=== PATIENT | female | born 1990 | race Hispanic/Latino ===

== ENCOUNTER 2020-05-20 18:31 | Emergency (ER) | payer MEDICAID ==
[2020-05-20] MEDS ORDERED: ZOSYN 3.375GM+NS 50ML 50 ML IV ONE (20:41)
[2020-05-20] MEDS ORDERED: ONDANSETRON HCL 4 MG/2 ML VIAL ONE (20:41)
[2020-05-20] MEDS ORDERED: ACETAMINOPHEN 325 MG TAB ONE (20:41)
[2020-05-20] MEDS ORDERED: IBUPROFEN 600 MG TABLET ONE (20:42)
[2020-05-20] MEDS ORDERED: MORPHINE SULFATE 4 MG/1ML SYG ONE (20:42)
[2020-05-20 20:51] LABS: BASOPHILS % (AUTO) 0.1 % (0.0-5.0); EOSINOPHILS % (AUTO) 0.6 % (0.0-8.0); HEMATOCRIT 38.3 % (36-48); LYMPHOCYTES % (AUTO) 21.5 % (21.0-51.0); MEAN CORPUSCULAR HEMOGLOBIN 30.2 pg (27.0-33.0); MEAN CORPUSCULAR HGB CONC 34.5 g/dL (32.0-36.0); MEAN CORPUSCULAR VOLUME 87.6 fL (79-99); MONOCYTES % (AUTO) 8.1 % (3.0-13.0); NEUTROPHILS % (AUTO) 69.4 % (40.0-77.0); PLATELET COUNT (AUTO) 303 K/uL (130-400); RED BLOOD CELL COUNT(AUTO) 4.37 MIL/uL (4.00-5.50); RED CELL DISTRIBUTION WIDTH 12.1 % (11.0-15.5); WHITE BLOOD COUNT (AUTO) 6.9 K/uL (4.8-10.8)
[2020-05-20 20:55] LABS: APPEARANCE,URINE Clear (CLEAR); BILIRUBIN,URINE Negative (NEGATIVE); COLOR,URINE Yellow (YELLOW); GLUCOSE, URINE (UA) Negative (NEGATIVE); KETONES,URINE Negative (NEGATIVE); LEUKOCYTE ESTERASE ,URINE Trace (NEGATIVE); NITRATE,URINE Negative (NEGATIVE); OCCULT BLOOD,URINE Large (NEGATIVE); PROTEIN,URINE Negative (NEGATIVE); UROBILINOGEN,URINE 0.2 mg/dL (0.2-1.0)
[2020-05-20 20:57] LABS: HCG,QUAL RESULT NEGATIVE (NEGATIVE)
[2020-05-20 21:00] LABS: CREATININE 0.6 mg/dL (0.5-1.5); POTASSIUM 3.4 mmol/L (3.5-5.1)
[2020-05-20 21:04] LABS: ALBUMIN 3.9 g/dL (3.5-5.0); BILIRUBIN,TOTAL 0.2 mg/dL (0.2-1.0); TOTAL PROTEIN, SERUM 7.4 g/dL (6.0-8.3)
[2020-05-20 21:24] LABS: BACTERIA,URINE Rare /HPF (None Seen)
[2020-05-20 21:25] LABS: SQUAMOUS EPITHELIAL CELL,UR Few /HPF (0-2)
[2020-05-20] MEDS ORDERED: IOHEXOL-350 75 ML VIAL IV ONE (21:28)
[2020-05-20] MEDS ORDERED: CEFTRIAXONE SODIUM 500 MG VIAL ONE (23:36)
[2020-05-20] MEDS ORDERED: AZITHROMYCIN 250 MG TABLET PO ONE (23:37)
[2020-05-24 10:13] LABS: CHLAMYDIA DNA N.A.AMPLIFY Negative (Negative)
== END 2020-05-21 00:14 | disposition home or self-care (01) ==
LOC: EDH 18:31
DX: N73.9 Female pelvic inflammatory disease, unspecified (principal); J45.909 Unspecified asthma, uncomplicated; Z91.040 Latex allergy status
CPT/HCPCS: 36415; 71045; 74177; 76856; 80053; 81001; 81025; 83605; 83690; 85025; 87040 ×2; 87486; 87797; 93005; 96365; 96366; 96375; 99285; J0696; J2270; J2405; J2543; Q9967

== ENCOUNTER 2021-05-11 16:53 | Emergency (ER) | payer MEDICAID, OTHER ==
[~2021-05-11] VITALS: Ht 152.4 cm; Wt 49.0 kg
[2021-05-11 17:24] LABS: APPEARANCE,URINE Clear (CLEAR); BILIRUBIN,URINE Negative (NEGATIVE); COLOR,URINE Yellow (YELLOW); GLUCOSE, URINE (UA) TRACE mg/dL (NEGATIVE); KETONES,URINE Negative (NEGATIVE); LEUKOCYTE ESTERASE ,URINE Negative (NEGATIVE); NITRATE,URINE Negative (NEGATIVE); OCCULT BLOOD,URINE Negative (NEGATIVE); PH,URINE 6.5 (5.0-8.0); PROTEIN,URINE Negative (NEGATIVE); UROBILINOGEN,URINE 0.2 mg/dL (0.2-1.0)
[2021-05-11 17:29] LABS: HCG,QUAL RESULT NEGATIVE (NEGATIVE)
[2021-05-11 17:35] LABS: BACTERIA,URINE Few /HPF (None Seen); RBC,URINE 0-1 /HPF (0-1); SQUAMOUS EPITHELIAL CELL,UR Few /HPF (0-2); WBC,URINE 0-1 /HPF (0-1)
[2021-05-11 17:47] LABS: BASOPHILS % (AUTO) 0.3 % (0.0-5.0); EOSINOPHILS % (AUTO) 2.8 % (0.0-8.0); HEMATOCRIT 36.7 % (36-48); LYMPHOCYTES % (AUTO) 26.8 % (21.0-51.0); MEAN CORPUSCULAR HEMOGLOBIN 30.2 pg (27.0-33.0); MEAN CORPUSCULAR HGB CONC 33.8 g/dL (32.0-36.0); MEAN CORPUSCULAR VOLUME 89.5 fL (79-99); MONOCYTES % (AUTO) 9.7 % (3.0-13.0); NEUTROPHILS % (AUTO) 60.2 % (40.0-77.0); PLATELET COUNT (AUTO) 281 K/uL (130-400); RED CELL DISTRIBUTION WIDTH 12.4 % (11.0-15.5); WHITE BLOOD COUNT (AUTO) 6.1 K/uL (4.8-10.8)
[2021-05-11 18:08] LABS: CREATININE 0.6 mg/dL (0.5-1.5); POTASSIUM 3.8 mmol/L (3.5-5.1)
[2021-05-11 18:14] LABS: ALBUMIN 4.1 g/dL (3.5-5.0); TOTAL PROTEIN, SERUM 7.2 g/dL (6.0-8.3)
[2021-05-11 18:26] LABS: BILIRUBIN,TOTAL 0.1 mg/dL (0.2-1.0)
[2021-05-11] MEDS: ONDANSETRON 4MG INJ ONE (19:58)
[2021-05-11] MEDS: ONDANSETRON 4MG INJ IVP ONE (19:58)
[2021-05-11] MEDS: KETOROLAC 15MG/ML VIAL (15MG/ML) IV ONE (19:58)
[2021-05-11] MEDS: MORPHINE 2 MG SYG IVP ONE (19:58)
[2021-05-11] MEDS: MORPHINE 2 MG SYG ONE (19:58)
[2021-05-11] MEDS: 0.9%NACL 1000ML 1,000 ML IV ONE (19:58)
[2021-05-11] MEDS: KETOROLAC 15MG/ML VIAL (15MG/ML) ONE (19:58)
[2021-05-11] MEDS ORDERED: ONDA4TAB10 PO (19:59)
[2021-05-11] MEDS ORDERED: NAPR500T6 PO (19:59)
[2021-05-11 20:30] VITALS: BP 118/59
== END 2021-05-11 20:31 | disposition home or self-care (01) ==
LOC: EDH 16:53
DX: K80.20 Calculus of gallbladder without cholecystitis without obstruction (principal); Z91.040 Latex allergy status; Z88.6 Allergy status to analgesic agent; Z98.890 Other specified postprocedural states
CPT/HCPCS: 36415; 76705; 80053; 81001; 81025; 83690; 85025; 96361; 96374; 96375; 99284; J1885; J2405; J7030

== ENCOUNTER 2022-01-10 19:47 | Emergency (ER) | payer MEDICAID ==
[~2022-01-10] VITALS: Ht 154.9 cm; Wt 49.9 kg
[~2022-01-10 19:47] MED LIST: NAPR500T6 PO; ONDA4TAB10 PO
[2022-01-10 21:23] VITALS: BP 110/74
== END 2022-01-10 21:42 | disposition home or self-care (01) ==
LOC: EDH 19:47
DX: B34.9 Viral infection, unspecified (principal); K21.9 Gastro-esophageal reflux disease without esophagitis; G43.909 Migraine, unspecified, not intractable, without status migrainosus; K58.9 Irritable bowel syndrome, unspecified; Z79.1 Long term (current) use of non-steroidal anti-inflammatories (NSAID)

== ENCOUNTER 2023-01-13 12:02 | Emergency (ER) | payer BC, MEDICAID ==
[~2023-01-13] VITALS: Ht 154.9 cm; Wt 54.4 kg
[2023-01-13 12:32] VITALS: RESP 16
[2023-01-13] MEDS ORDERED: ONDANSETRON 4MG INJ IVP ONE (13:30)
[2023-01-13] MEDS ORDERED: KETOROLAC 30MG VIAL (30MG/ML) IVP ONE (13:30)
[2023-01-13] MEDS ORDERED: FAMOTIDINE 20MG VIAL IV ONE (13:30)
[2023-01-13] MEDS ORDERED: 0.9%NACL 1000ML 1,000 ML IV ONE (13:30)
[2023-01-13 14:04] LABS: APPEARANCE,URINE CLEAR (CLEAR); BILIRUBIN,URINE NEGATIVE (NEGATIVE); COLOR,URINE COLORLESS (YELLOW); GLUCOSE, URINE (UA) NEGATIVE (NEGATIVE); KETONES,URINE NEGATIVE (NEGATIVE); LEUKOCYTE ESTERASE ,URINE NEGATIVE Leu/uL (NEGATIVE); NITRATE,URINE NEGATIVE (NEGATIVE); OCCULT BLOOD,URINE NEGATIVE (NEGATIVE); PH,URINE 6.5 (5.0-8.0); PROTEIN,URINE NEGATIVE (NEGATIVE); UROBILINOGEN,URINE 0.2 mg/dL (0.2-1.0)
[2023-01-13 14:06] LABS: HCG,QUALITATIVE URINE NEGATIVE (NEGATIVE)
[2023-01-13 14:07] LABS: ADD UA MICROSCOPIC NO
[2023-01-13 14:08] LABS: BASOPHILS # (AUTO) 0.03 K/uL (0.00-0.20); BASOPHILS % (AUTO) 0.4 % (0.0-5.0); EOSINOPHILS # (AUTO) 0.16 K/uL (0.00-0.70); EOSINOPHILS % (AUTO) 2.3 % (0.0-8.0); IMMATURE GRANULOCYTE ABSOLUTE 0.01 K/uL (0-1); LYMPHOCYTES # (AUTO) 2.2 K/uL (1.0-4.8); LYMPHOCYTES % (AUTO) 31.2 % (21.0-51.0); MEAN CORPUSCULAR HEMOGLOBIN 26.7 pg (27.0-33.0); MEAN CORPUSCULAR HGB CONC 31.8 g/dL (32.0-36.0); MEAN CORPUSCULAR VOLUME 83.9 fL (79-99); MONOCYTES # (AUTO) 0.4 K/uL (0.1-1.0); MONOCYTES % (AUTO) 5.9 % (3.0-13.0); NEUTROPHILS # (AUTO) 4.3 K/uL (1.8-7.7); NEUTROPHILS % (AUTO) 60.1 % (40.0-77.0); PLATELET COUNT (AUTO) 387 K/uL (130-400); RED BLOOD CELL COUNT(AUTO) 4.53 MIL/uL (4.00-5.50); RED CELL DISTRIBUTION WIDTH 15.9 % (11.0-15.5); WHITE BLOOD COUNT (AUTO) 7.1 K/uL (4.8-10.8)
[2023-01-13 14:17] LABS: CREATININE 0.6 mg/dL (0.5-1.5)
[2023-01-13 14:22] LABS: ALBUMIN 4.4 g/dL (3.5-5.0); BILIRUBIN,TOTAL 0.3 mg/dL (0.2-1.0)
[2023-01-13 16:01] VITALS: BP 116/64; PULSE 71; O2SAT 98
[2023-01-13] MEDS ORDERED: FAMO-136 PO (16:35)
[2023-01-13] MEDS ORDERED: ONDA4TAB10 PO (16:35)
[2023-01-13] MEDS ORDERED: IBUP-2076 PO (16:35)
== END 2023-01-13 16:42 | disposition home or self-care (01) ==
LOC: EDH 12:02
DX: K82.9 Disease of gallbladder, unspecified (principal); K80.50 Calculus of bile duct without cholangitis or cholecystitis without obstruction; K80.20 Calculus of gallbladder without cholecystitis without obstruction; R10.11 Right upper quadrant pain; R11.0 Nausea; K21.9 Gastro-esophageal reflux disease without esophagitis; G43.909 Migraine, unspecified, not intractable, without status migrainosus
CPT/HCPCS: 99284; 96374; 76705; 96375; 96361; 80053; 83690; 85025; 81003; 81025; 36415; J3490; J2405; J1885

== ENCOUNTER → 2024-06-16 | Outpatient (CLI) | payer OTHER ==
[~2024-06-16] MED LIST changes: +FAMO-136 PO; +IBUP-2076 PO; +NAPR-1506 PO; -NAPR500T6 PO; +ONDA-243 PO; -ONDA4TAB10 PO
--- NOTE | 2024-06-16 13:36 | HMCIMG ---
Nuclear medicine gastric emptying study HISTORY: nausea. COMPARISON: No relevant prior studies. RADIOPHARMACEUTICAL: 1 mCi of technetium 99 sulfur colloid TECHNIQUE: Dynamic computer imaging and serial static images were performed over the anterior abdomen for 1 hour. Static images obtained up to 2 hours. By region of interest computer analysis, a time/activity curve for the stomach was generated and a T 1/2 for clearance of activity was determined. FINDINGS: Review of dynamic images does not demonstrate any gastroesophageal reflux. The normal pattern of Percent empty at 1 hour: Less than 10 percent (less than 40 percent at one hour is consistent with delayed emptying). IMPRESSION: Gastroparesis.
== END | disposition home or self-care (01) ==
LOC: RAH 10:53
PROVIDERS: ATTEND Internal Medicine Gastroenterology
DX: K31.84 Gastroparesis (principal); R11.0 Nausea
CPT/HCPCS: 78264; A9541